=== PATIENT | female | born 1955 | race Caucasian/White ===

== ENCOUNTER 2017-05-10 12:04 | Emergency (ER) | payer OTHER ==
--- NOTE | 2017-05-10 12:49 | ED Physician Documentation ---
PD HPI OPHTHO - Stated complaint Stated Complaint: BILAT EYE BURNING/VISION LOSS - Chief complaint Chief Complaint: Heent - History obtained from History obtained from: Patient, Family - History of Present Illness Timing - onset: Today Timing - duration: Hours Timing - details: Abrupt onset, Still present Location: Both Quality / character: Itching, Burning, Throbbing, Sharp Associated symptoms: Redness, Tearing, Discharge, Photophobia, Decreased vision Contributing factors: Chemical exposure, base Similar symptoms before: Has not had sx before Recently seen: Not recently seen - Additional information Additional information: 61-year-old female wears contact lenses and this morning she washed her contact lenses with her contact lens cleaning solution and placed her contact lenses into her eyes. She had immediate burning she has more burning on the right side than the left and she is bothered by this quite a bit. She did rinse her eyes out extensively at home comes in now with persistent pain and clouding of the right thigh. She has less vision in the right eye than normal for her. Review of Systems Constitutional: denies: Fever, Chills Eyes: reports: Decreased vision, Photophobia, Discharge, Irritation Ears: denies: Ear pain Nose: denies: Congestion Throat: denies: Sore throat Respiratory: denies: Cough GI: denies: Vomiting PD PAST MEDICAL HISTORY - Past Medical History Past Medical History: Yes Cardiovascular: High cholesterol Psych: Anxiety - Past Surgical History Past Surgical History: Yes General: Bowel surgery - Present Medications Home Medications: Ambulatory Orders Medication Instructions Recorded Confirmed FLUoxetine [PROzac] 10 mg PO DAILY 05/10/17 05/10/17 Neomycin/Poly/Dexam Ophth Oint 0.25 inch EACHEYE BID #1 tube 05/10/17 [Maxitrol Ophth Oint] - Allergies Allergies/Adverse Reactions: Allergies Allergy/AdvReac Type Severity Reaction Status Date / Time No Known Drug Allergies Allergy Verified 05/10/17 12:21 - Social History Does the pt smoke?: No Smoking Status: Never smoker PD ED PE NORMAL - Vitals Vital signs reviewed: Yes (Hypertensive) - General General: Well developed/nourished, Other (The patient appears uncomfortable blinking her eyes frequently and holding her forehead.) - HEENT HEENT: Atraumatic, PERRL, EOMI, Other (Both corneas appear superficially denuded.There is a lot of injection to the sclera and inflammation of the conjunctiva.) - Neck Neck: Supple, no meningeal sign - Respiratory Respiratory: No respiratory distress - Derm Derm: Normal color, Warm and dry, No rash - Extremities Extremities: No deformity, No edema - Neuro Neuro: No motor deficit, No sensory deficit - Psych Psych: Normal mood, Normal affect Results - Vitals Vitals: Vital Signs - 24 hr 05/10/17 12:17 Temperature 36.5 C Heart Rate 84 Respiratory 20 Rate Blood Pressure 149/88 H O2 Saturation 97 Oxygen O2 Source Room air PD MEDICAL DECISION MAKING - ED course Complexity details: considered differential, d/w patient, d/w family ED course: 61-year-old female with contact lens cleaning solution her eyes has some clouding of her cornea and here in the emergency department she is administered Alcaine to both eyes with prompt and excellent pain relief and her eyes are both irrigated with saline. Departure - Departure Disposition: 01 Home, Self Care Clinical Impression: Chemical conjunctivitis of both eyes Condition: Stable Instructions: ED Chemical Conjunctivitis Follow-Up: Tesfaye Blanco MD [Provider Admit Priv/Credential] - Prescriptions: Neomycin/Poly/Dexam Ophth Oint [Maxitrol Ophth Oint] 0.25 inch EACHEYE BID #1 tube Comments: Expect resolution of symptoms of pain and cloudy vision to improve over the next day.
[2017-05-10] MEDS ORDERED: NEOMYCIN/POLYMYX/DEXAMETH OPHTH OINT EACHEYE STA (13:48)
[2017-05-10] MEDS ORDERED: NEOMYCIN/POLYMYX/DEXAMETH OPHTH OINT ONE (13:52)
[2017-05-10 13:58] VITALS: BP 127/85
== END 2017-05-10 13:57 | disposition home or self-care (01) ==
LOC: ED 12:04
DX: T49.5X1A Poisoning by ophthalmological drugs and preparations, accidental (unintentional), initial encounter (principal); T26.62XA Corrosion of cornea and conjunctival sac, left eye, initial encounter; T26.61XA Corrosion of cornea and conjunctival sac, right eye, initial encounter; Y93.89 Activity, other specified
CPT/HCPCS: 99283; A9270